=== PATIENT | female | born 1965 | race Caucasian/White ===

== ENCOUNTER → 2017-10-10 | Outpatient (CLI) | payer MEDICARE ==
[2017-10-10 13:51] LABS: INR 1.72
== END ==
LOC: LAB 13:18
PROVIDERS: ATTEND Orthopaedic Surgery Adult Reconstructive Orthopaedic Surgery
DX: Z79.01 Long term (current) use of anticoagulants (principal); Z96.649 Presence of unspecified artificial hip joint
CPT/HCPCS: 36415; 85610

== ENCOUNTER → 2017-10-16 | Outpatient (CLI) | payer MEDICARE, MEDICAID ==
[2017-10-16 14:11] LABS: INR 1.26
== END ==
LOC: LAB 13:51
PROVIDERS: ATTEND Orthopaedic Surgery Adult Reconstructive Orthopaedic Surgery
DX: Z79.01 Long term (current) use of anticoagulants (principal); M17.11 Unilateral primary osteoarthritis, right knee; M17.12 Unilateral primary osteoarthritis, left knee; M17.0 Bilateral primary osteoarthritis of knee; M18.11 Unilateral primary osteoarthritis of first carpometacarpal joint, right hand; M16.12 Unilateral primary osteoarthritis, left hip
CPT/HCPCS: 36415; 85610

== ENCOUNTER → 2017-10-20 | Outpatient (REF) | payer MEDICARE, MEDICAID | LOC: ZZSTITCHES 15:07 | PROVIDERS: ATTEND Physician Assistant | DX: S71.001A Unspecified open wound, right hip, initial encounter (principal); B95.7 Other staphylococcus as the cause of diseases classified elsewhere | CPT/HCPCS: 87070; 87077; 87186 ==

== ENCOUNTER → 2017-10-24 | Outpatient (CLI) | payer MEDICARE, MEDICAID ==
[2017-10-24 13:48] LABS: INR 1.79
== END ==
LOC: LAB 13:23
PROVIDERS: ATTEND Orthopaedic Surgery Adult Reconstructive Orthopaedic Surgery
DX: Z79.01 Long term (current) use of anticoagulants (principal); M17.11 Unilateral primary osteoarthritis, right knee; M17.12 Unilateral primary osteoarthritis, left knee; M17.0 Bilateral primary osteoarthritis of knee; M16.11 Unilateral primary osteoarthritis, right hip; M16.12 Unilateral primary osteoarthritis, left hip
CPT/HCPCS: 36415; 85610

== ENCOUNTER 2018-04-16 13:00 | Outpatient (RCR) | payer MEDICARE, MEDICAID ==
--- NOTE | 2018-04-11 08:29 | PT INITIAL EVALUATION ---
MEDICAL DIAGNOSIS: s/p R SHEILA TREATMENT DIAGNOSIS: Same, altered gait and balance, R hip pain DATE OF ONSET: 09/29/17 SUBJECTIVE: Nika Portillo presents to PT for R SHEILA rehabilitation. I know Nika from her L SHEILA with L LE nerve damage, 2013. She has had SHEILA for hip dysplasia, had R hip pinning in the 4th or 5th grade. Her R femur fractured during R SHEILA due to the pins being fused in the bone. She now drives, can ambulate short distances, has R hip pain. her goals include improved ambulation , reduce pain medicine, walk full shopping trips with a grocery cart, be more steady in community ambulation. Her L shoulder aches with L side lie since being NWB 10 week post- R SHEILA and is improving. Pain location is R posterior and lateral hip/thigh, L-S, L lower leg numbness but hypesthesia and described as ache, tightness. Pain scale is 5/10, worse with ambulation, R side lie and better with medicine, ice. REHAB PROBLEM LIST: Increased Pain Decreased ROM Decreased Strength Decreased Endurance Decreased Balance Decreased ADL's Decreased Gait PREVIOUS MEDICAL HISTORY: L SHEILA 2013, hip dysplasia, nerve ablations without success. OCCUPATION: Disabled, lives alone, tub/shower transfers and two steps into home are independent, per Nika. OBJECTIVE: Posture: Independent stance with heels 6" apart, trunk flexed 20 degrees, steady. ROM: A/PROM R hip flexion 90/100 deg., IR 0/15 deg., ER 15/25 deg., extension - 10/-10 deg., adduction 10/15 deg., IT band pain. R knee and ankle PROM WNL, L ankle AROM DF -5 deg, PF 20 degrees, knee AROM WNL, L hip PROM Strength: L G. minimus/ruchi 3+/5, G. medius 4/5, quad 4/5, ankle DF 5-/5, PF 3+/5, R quad 4/5, ankle DF 3+/5, PF 3/5. Palpation: Painful R incision and IT band, TFL, hypesthesia L lower leg, worse at the foot Special Tests: Positive L Joanna's test. Mobility: Independent. Gait: Nika ambulates without hip extension B, lacks L pelvic WS in L stance cane, mild R foot drop, trunk flexed 25 degrees, ipsilateral trunk lean in stance, L and R, slow cadance with shorter R step length. Balance: Double limb support. ASSESSMENT: Nika Portillo presents with weakness, pain, reduced ROM, altered gait, reduced balance, function, endurance. She did well with HEP instruction. Short Term Goals/Patient's Goals: One month: Nika ambulates short community distances with cane with L LE WS, even stance time, L hip pain 5/10. Two months: Nika shops for 30 minutes with cart with L hip pain 3/10, ambulates with upright, midline trunk, stands 30 minutes cooking. Three months: Nika mops her floors, ambulates long community distances with cane, L hip pain 2-3/10. PLAN: Patient to be seen for Manual Therapy, Strengthening/condition, Ice/Heat , Range of Motion, Stretching, Neuromuscular Re-ed, Electrical Stim, Gait Trg/ Balance Trg, Home Exercise Program 3x/Week for 3 months Thank you for this referral. If you have any questions, comments, or concerns about this report or plan, please contact me at . MTDD
--- NOTE | 2018-05-16 15:32 | PT PLAN OF CARE ---
Physician: Dr. Paul Cox Patient has stopped attending PT Therapist: Arely Henson, PT Medical Diagnosis: s/p R SHEILA Treatment Diagnosis: Same, altered gait and balance, R hip pain Date of Onset: 09/29/17 Date of Initial Evaluation: 04/10/18 Date patient was last seen: 04/16/18 Number of treatments: 3 Number of cancellations/No shows: 4 INTERVENTIONS: Strengthening/condition, Stretching GOALS/PATIENT'S GOAL: All not met: One month: Nika ambulates short community distances with cane with L LE WS, even stance time, L hip pain 5/10. Two months: Nika shops for 30 minutes with cart with L hip pain 3/10, ambulates with upright, midline trunk, stands 30 minutes cooking. Three months: Nika mops her floors, ambulates long community distances with cane, L hip pain 2-3/10. Patient Compliance: Poor Prognosis: Excellent Reasons for discontinuing therapy: S: Nika left town after mid-April for a and has returned to [place], but doesn't return our calls to schedule more PT. A/P: Nika has discharged herself from PT. I'll close her PT case. Thank you. SIMONE
== END 2018-04-16 18:00 | disposition home or self-care (01) ==
LOC: PT 13:00
PROVIDERS: ATTEND Orthopaedic Surgery Adult Reconstructive Orthopaedic Surgery
DX: Z47.1 Aftercare following joint replacement surgery (principal); Z96.643 Presence of artificial hip joint, bilateral; R26.89 Other abnormalities of gait and mobility; M25.551 Pain in right hip
CPT/HCPCS: 97162

== ENCOUNTER → 2018-04-19 | Outpatient (CLI) | payer MEDICARE, MEDICAID | LOC: LAB 14:53 | PROVIDERS: ATTEND Clinical Nurse Specialist Family Health | DX: R53.83 Other fatigue (principal); Z79.899 Other long term (current) drug therapy | CPT/HCPCS: 36415; 82040; 82247; 82310; 82374; 82435; 82565; 82947; 84075; 84132; 84155; 84295; 84443; 84450; 84460; 84520 ==

== ENCOUNTER 2018-05-14 10:06 | Emergency (ER) | payer MEDICARE, MEDICAID ==
[2018-05-14] MEDS ORDERED: ANAPHYLAXIS KIT 1 EA ONE (10:08)
--- NOTE | 2018-05-14 10:12 | ER Report ---
History and Physical Time Seen By MD: 10:12 HPI/ROS 52-year-old female presents to the emergency department stating that she is having an allergic reaction from a spider bite. History is obtained after treatment for a presumed allergic reaction. She states that she has had a small abscess with swelling on her face since yesterday, and also reports a "spider bite" in her ear that also started yesterday. She became short of breath this morning after taking gabapentin. Other than the abscess to her face she denies any rashes, no nausea vomiting or diarrhea, and reports mild wheezing. No fever or chills. She has a history of MRSA. No difficulty swallowing, no fullness in her upper airway, no change in voice.. Allergies: Coded Allergies: butorphanol (Verified Allergy, Intermediate, 05/14/18) Home Meds Active Scripts Mupirocin Marlon 2% Cream (MUPIROCIN 2% CREAM) 15 Gm Cream..g., 0 TP TID for 10 Days, TUBE Prov:PATTI CHARLTON MD 05/14/18 Cephalexin 500 Mg Tab (KEFLEX 500 MG TAB) 500 Mg Tablet, 500 MG PO BID for 10 Days, #20 TAB Prov:PATTI CHARLTON MD 05/14/18 Sulfamethoxazole/Trimet 800-160 Mg Tab (BACTRIM DS TABLET) 1 Each Tablet, 1 TAB PO Q12H for 10 Days, TAB Prov:PATTI CHARLTON MD 05/14/18 Reported Medications Albuterol Sulfate (VENTOLIN HFA) 18 Gm Inh, 2 PUFF INH Q4-6H, INH 05/14/18 Duloxetine HCl (Duloxetine HCl) 60 Mg Capsule.dr, BID 05/14/18 Tapentadol Hcl (NUCYNTA) 75 Mg Tablet, 75 MG PO Q6H 05/14/18 Gabapentin (GABAPENTIN) 300 Mg Capsule, 600 MG PO DIRECTED, CAPSULE 05/14/18 Reviewed Nurses Notes: Yes Old Medical Records Reviewed: Yes Hx Smoking: Yes Smoking Status: Current: Every Day Smoker Exposure to Second Hand Smoke?: Yes Hx Substance Use Disorder: No Hx Alcohol Use: No Constitutional Vital Sign - Last 24 Hours 05/14/18 05/14/18 05/14/18 05/14/18 10:06 10:08 10:09 10:13 Temp 97.5 Pulse ??? 82 Resp 18 B/P (MAP) 204/110 (141) 162/100 (120) 162/100 Pulse Ox 92 05/14/18 05/14/18 05/14/18 10:16 10:20 10:20 Pulse 78 83 Resp 14 Pulse Ox 92 94 O2 Delivery Room Air Physical Exam General Appearance: The patient is alert, has no immediate need for airway protection and no current signs of toxicity. Eyes: Pupils equal and round no injection. Respiratory: Chest is non tender, lungs are clear to auscultation. Cardiac: regular rate and rhythm Gastrointestinal: Abdomen is soft and non tender, no masses, bowel sounds normal. Musculoskeletal: Neck: Neck is supple and non tender. Extremities have full range of motion and are non tender. Skin: no rashes, 1x1cm pustule with surrounding erythema to her right chin area with subsequent edema DIFFERENTIAL DIAGNOSIS: After history and physical exam differential diagnosis was considered for anaphylaxis, allergic reaction, abscess, MRSA Medical Decision Making ED Course/Re-evaluation ED Course 52-year-old female who presents to the emergency department tachypnea take and stating that she is having allergic reaction to a "spider bite." She was initially given Benadryl and Pepcid as well as Solu-Medrol for her presentation of an allergic reaction. Never any wheezing or airway edema. In further evaluation she has what appears to be an infected pressure on her face. No evidence of a dental caries or pain in her teeth. No airway compromise. I&D was attempted of the small pustule, but the fluid appears loculated. Given her history of MRSA, she was placed on Bactrim and Keflex as well as mupirocin cream applied directly to the pustule. I do not think her presentation was a true allergic reaction. Not think she needs additional steroids to take home. She will follow-up with her primary care physician. Procedure AN I&D was attempted using an 18 gauge needle used to attempt to deroof the abscess Decision to Disposition Date: May 14, 2018 Decision to Disposition Time: 13:25 Depart Departure Latest Vital Signs Vital Signs Date Time Temp Pulse Resp B/P (MAP) Pulse Ox O2 Delivery O2 Flow Rate FiO2 05/14/18 10:20 83 14 05/14/18 10:20 94 Room Air 05/14/18 10:13 97.5 162/100 Impression: Primary Impression: Facial abscess Additional Impression: Allergic reaction Condition: Improved Disposition: HOME OR SELF-CARE New Scripts Mupirocin Marlon 2% Cream (MUPIROCIN 2% CREAM) 15 Gm Cream..g. 0 TP TID for 10 Days, TUBE Prov: PATTI CHARLTON MD 05/14/18 Cephalexin 500 Mg Tab (KEFLEX 500 MG TAB) 500 Mg Tablet 500 MG PO BID for 10 Days, #20 TAB Prov: PATTI CHARLTON MD 05/14/18 Sulfamethoxazole/Trimet 800-160 Mg Tab (BACTRIM DS TABLET) 1 Each Tablet 1 TAB PO Q12H for 10 Days, TAB Prov: PATTI CHARLTON MD 05/14/18 Patient Instructions: Abscess (ED) Problem Qualifiers Additional Impression: Allergic reaction Encounter type: initial encounter Qualified Codes: T78.40XA - Allergy, unspecified, initial encounter PATTI CHARLTON MD May 14, 2018 10:12
[2018-05-14 10:13] VITALS: BP 162/100
[2018-05-14] MEDS ORDERED: methylPREDNIS SUCC 125 MG/2ML IVP ONE (10:15)
[2018-05-14] MEDS ORDERED: FAMOTIDINE 20 MG TAB PO ONE (10:15)
[2018-05-14] MEDS ORDERED: diphenhydrAMINE 25 MG CAP PO ONE (10:15)
[2018-05-14] MEDS ORDERED: ALBUTEROL/IPRATROPIUM 3 ML NEB NEB ONE (10:15)
[2018-05-14] MEDS ORDERED: GABA-549 PO (11:02)
[2018-05-14] MEDS ORDERED: TAPE75TA PO (11:02)
[2018-05-14] MEDS ORDERED: ALB18R INH (11:02)
[2018-05-14] MEDS ORDERED: DULO60CA7 (11:02)
--- NOTE | 2018-05-14 11:04 | RADIOLOGY IMAGING REPORT ---
FACILITY: [facility] - [place] PATIENT NAME: Nika Portillo : 1965 MR: [id number] V: [id number] EXAM DATE: ORDERING PHYSICIAN: PATTI CHARLTON TECHNOLOGIST: Location: [facility] - [place] Patient: Nika Portillo : 1965 Visit/Account:[id number] Date of Sevice: 05/14/2018 Exam type: CHEST SINGLE AP History: Spider bite, shortness of breath Comparison: None. Findings: Small nodular density projecting over the left midlung field. No evidence of focal infiltrates, pulm onary edema or pleural effusions. The cardiac silhouette is normal in size. There is mild right hil ar prominence IMPRESSION: 1. A small nodular density projects over the left midlung field. There are no prior studies availab le for comparison and therefore short-term interval follow-up chest or chest CT recommended No evidence of focal infiltrates or overt pulmonary edema. Mild right hilar prominence. This could represent an overlapping vascular shadow although again shor t-term interval follow-up chest or chest CT recommended Report Dictated By: Latosha Isaac MD at 05/14/2018 10:41 AM Report E-Signed By: Latosha Isaac MD at 05/14/2018 10:59 AM WSN:[email or web address]
[2018-05-14] MEDS ORDERED: diphenhydrAMINE 50 MG/ML VIAL IVP ONE (11:10)
[2018-05-14] MEDS ORDERED: FAMOTIDINE(*) 20MG/50ML PREMIX 50 ML IVPB ONE (11:10)
[2018-05-14] MEDS ORDERED: MUPIROCIN 2% OINT 22 GM TUBE TP ONE (13:05)
[2018-05-14] MEDS ORDERED: TRIMETH/SULFA DS 160-800MG TAB PO ONE (13:05)
[2018-05-14] MEDS ORDERED: CEPHALEXIN MONO 500 MG CAP PO ONE (13:05)
[2018-05-14] MEDS ORDERED: CEPH500T7 PO (13:28)
[2018-05-14] MEDS ORDERED: SULF-198 PO (13:28)
[2018-05-14] MEDS ORDERED: MUPI15CR2 TP (13:29)
== END 2018-05-14 13:50 | disposition home or self-care (01) ==
LOC: ER 10:15
DX: T78.40XA Allergy, unspecified, initial encounter (principal); L02.01 Cutaneous abscess of face
CPT/HCPCS: 10060; 71045; 94640; 96365; 96375; 99284; A9270; J1200; J2930; J3490; J7620

== ENCOUNTER 2018-05-16 12:15 | Emergency (ER) | payer MEDICARE, MEDICAID ==
[~2018-05-16 12:15] MED LIST: ALB18R INH; CEPH500T7 PO; DULO60CA7; GABA-549 PO; MUPI15CR2 TP; SULF-198 PO; TAPE75TA PO
[2018-05-16] MEDS ORDERED: DICL100G39 (12:31)
[2018-05-16 12:47] LABS: PLATELET COUNT, AUTOMATED 291 K/uL (150-450)
--- NOTE | 2018-05-16 13:48 | ER Report ---
History and Physical Time Seen By MD: 12:16 Hx. of Stated Complaint: Recheck for facial swelling. Thinks it is getting worse HPI/ROS CHIEF COMPLAINT: Facial abscess HISTORY OF PRESENT ILLNESS: Patient is a 52-year-old female who presents to ED with complaint of a right facial abscess. She states that she was seen in the emergency department 2 days ago for this and was prescribed Keflex and Bactrim. She states that she has been taking his antibiotics but continues to notice some pain. She denies any actual dental pain but no since he does have a bad tooth in the right lower or area. She denies any fever. She has not noted any discharge. Patient denies any, shortness of breath. She states that the swelling has been coming and going at times and has been itchy at times as well. REVIEW OF SYSTEMS: Constitutional: See history of present illness. Eyes: No discharge. ENT: See history of present illness. Cardiovascular: No chest pain, no palpitations. Respiratory: No cough, no shortness of breath. Gastrointestinal: No abdominal pain, no vomiting. Musculoskeletal: No back pain. Skin: See history of present illness. Neurological: No headache. Allergies: Coded Allergies: butorphanol (Verified Allergy, Intermediate, 05/16/18) Home Meds Active Scripts Mupirocin Marlon 2% Cream (MUPIROCIN 2% CREAM) 15 Gm Cream..g., 0 TP TID for 10 Days, TUBE Prov:PATTI CHARLTON MD 05/14/18 Cephalexin 500 Mg Tab (KEFLEX 500 MG TAB) 500 Mg Tablet, 500 MG PO BID for 10 Days, #20 TAB Prov:PATTI CHARLTON MD 05/14/18 Sulfamethoxazole/Trimet 800-160 Mg Tab (BACTRIM DS TABLET) 1 Each Tablet, 1 TAB PO Q12H for 10 Days, TAB Prov:PATTI CHARLTON MD 05/14/18 Reported Medications Diclofenac Sodium 1% Gel (VOLTAREN 1% GEL) 100 Gm Gel..gram., Y for PAIN 05/16/18 Albuterol Sulfate (VENTOLIN HFA) 18 Gm Inh, 2 PUFF INH Q4-6H, INH 05/14/18 Duloxetine HCl (Duloxetine HCl) 60 Mg Capsule.dr, BID 05/14/18 Tapentadol Hcl (NUCYNTA) 75 Mg Tablet, 75 MG PO Q6H 05/14/18 Gabapentin (GABAPENTIN) 300 Mg Capsule, 600 MG PO DIRECTED, CAPSULE 05/14/18 Reviewed Nurses Notes: Yes Old Medical Records Reviewed: Yes Hx Smoking: Yes Smoking Status: Current: Every Day Smoker Exposure to Second Hand Smoke?: Yes Hx Substance Use Disorder: No Hx Alcohol Use: No Constitutional Vital Sign - Last 24 Hours 05/16/18 12:17 Temp 98.4 Pulse 79 Resp 16 B/P (MAP) 156/60 Pulse Ox 93 O2 Delivery Room Air Physical Exam General Appearance: The patient is alert, has no immediate need for airway protection and no signs of toxicity. Patient appears to be in no acute distress. Eyes: Pupils equal and round no pallor or injection. ENT, Mouth: There is a discolored, brown, fractured right lower molar. The tooth is not painful with palpation. Some of the surrounding gum area is slightly tender to palpation. There is no obvious swelling or fluctuance noted. There is some swelling noted in the right lower face. There is bilateral anterior cervical lymphadenopathy appreciated. No pharyngeal erythema or exudate noted. There is no trismus. No meningeal signs noted. Patient's voice appears normal. Respiratory: There are no retractions, lungs are clear to auscultation. Cardiovascular: Regular rate and rhythm. Gastrointestinal: Abdomen is soft and non tender, no masses, bowel sounds normal. Neurological: Cranial nerves II through XII intact. Skin: See ENT exam. Musculoskeletal: Neck is supple non tender. Extremities are nontender, nonswollen and have full range of motion. DIFFERENTIAL DIAGNOSIS: After history and physical exam differential diagnosis was considered for right facial swelling including limited extension, dental abscess, parotitis, allergic reaction. Medical Decision Making Data Points Result Diagram: 05/16/18 1237 05/16/18 1237 Laboratory Hematology Test 05/16/18 12:37 Red Blood Count 5.32 M/uL (4.17-5.56) Mean Corpuscular Volume 79.3 fL (80.0-96.0) Mean Corpuscular Hemoglobin 25.9 pg (26.0-33.0) Mean Corpuscular Hemoglobin Concent 32.7 g/dL (32.0-36.0) Red Cell Distribution Width 17.2 % (11.5-14.5) Mean Platelet Volume 8.7 fL (7.2-11.1) Neutrophils (%) (Auto) 72.9 % (39.4-72.5) Lymphocytes (%) (Auto) 18.8 % (17.6-49.6) Monocytes (%) (Auto) 4.7 % (4.1-12.4) Eosinophils (%) (Auto) 2.5 % (0.4-6.7) Basophils (%) (Auto) 1.1 % (0.3-1.4) Nucleated RBC Relative Count (auto) 0.1 /100WBC Neutrophils # (Auto) 7.4 K/uL (2.0-7.4) Lymphocytes # (Auto) 1.9 K/uL (1.3-3.6) Monocytes # (Auto) 0.5 K/uL (0.3-1.0) Eosinophils # (Auto) 0.2 K/uL (0.0-0.5) Basophils # (Auto) 0.1 K/uL (0.0-0.1) Nucleated RBC Absolute Count (auto) 0.01 K/uL Sodium Level 141 mmol/L (137-145) Potassium Level 3.5 mmol/L (3.5-5.0) Chloride Level 101 mmol/L (98-107) Carbon Dioxide Level 29 mmol/L (22-31) Blood Urea Nitrogen 10 mg/dl (7-18) Creatinine 0.60 mg/dl (0.52-1.04) Glomerular Filtration Rate Calc > 60.0 Random Glucose 119 mg/dl (75-110) Calcium Level 8.8 mg/dl (8.4-10.2) Total Bilirubin 0.5 mg/dl (0.2-1.3) Aspartate Amino Transf (AST/SGOT) 29 U/L (0-35) Alanine Aminotransferase (ALT/SGPT) 25 U/L (0-56) Alkaline Phosphatase 127 U/L (0-126) C-Reactive Protein 2.5 mg/dl (<1.0) Total Protein 7.8 g/dl (6.3-8.2) Albumin 4.4 g/dl (3.5-5.0) Chemistry Test 05/16/18 12:37 White Blood Count 10.1 k/uL (4.5-11.0) Red Blood Count 5.32 M/uL (4.17-5.56) Hemoglobin 13.8 g/dL (12.0-16.0) Hematocrit 42.2 % (34.0-47.0) Mean Corpuscular Volume 79.3 fL (80.0-96.0) Mean Corpuscular Hemoglobin 25.9 pg (26.0-33.0) Mean Corpuscular Hemoglobin Concent 32.7 g/dL (32.0-36.0) Red Cell Distribution Width 17.2 % (11.5-14.5) Platelet Count 291 K/uL (150-450) Mean Platelet Volume 8.7 fL (7.2-11.1) Neutrophils (%) (Auto) 72.9 % (39.4-72.5) Lymphocytes (%) (Auto) 18.8 % (17.6-49.6) Monocytes (%) (Auto) 4.7 % (4.1-12.4) Eosinophils (%) (Auto) 2.5 % (0.4-6.7) Basophils (%) (Auto) 1.1 % (0.3-1.4) Nucleated RBC Relative Count (auto) 0.1 /100WBC Neutrophils # (Auto) 7.4 K/uL (2.0-7.4) Lymphocytes # (Auto) 1.9 K/uL (1.3-3.6) Monocytes # (Auto) 0.5 K/uL (0.3-1.0) Eosinophils # (Auto) 0.2 K/uL (0.0-0.5) Basophils # (Auto) 0.1 K/uL (0.0-0.1) Nucleated RBC Absolute Count (auto) 0.01 K/uL Glomerular Filtration Rate Calc > 60.0 Calcium Level 8.8 mg/dl (8.4-10.2) Total Bilirubin 0.5 mg/dl (0.2-1.3) Aspartate Amino Transf (AST/SGOT) 29 U/L (0-35) Alanine Aminotransferase (ALT/SGPT) 25 U/L (0-56) Alkaline Phosphatase 127 U/L (0-126) C-Reactive Protein 2.5 mg/dl (<1.0) Total Protein 7.8 g/dl (6.3-8.2) Albumin 4.4 g/dl (3.5-5.0) ED Course/Re-evaluation ED Course Will obtain labs and CT of the soft tissues of the neck. 05/16/2018 1:57:39 pm - discussed all labs and imaging with patient. Patient does not have any leukocytosis and only a slightly elevated CRP. Radiology read the CT indicates that there is no abscess formation. Soft tissue swelling appears to be primarily around the teeth into the cheek. She does have that poor looking tooth and would recommend following up with dentist regarding this. Will switch her antibiotics to clindamycin at this time. Decision to Disposition Date: May 16, 2018 Decision to Disposition Time: 13:58 Depart Departure Latest Vital Signs Vital Signs Date Time Temp Pulse Resp B/P (MAP) Pulse Ox O2 Delivery O2 Flow Rate FiO2 05/16/18 12:17 98.4 79 16 156/60 93 Room Air Impression: Primary Impression: Suspected soft tissue infection Condition: Improved Disposition: HOME OR SELF-CARE New Scripts Clindamycin Hcl (CLINDAMYCIN HCL) 300 Mg Capsule 300 MG PO Q6H, #40 CAPSULE Prov: TYLOR GAYTAN PA-C 05/16/18 Patient Instructions: Dental Caries (ED) Additional Instructions: Monitor for signs and symptoms of worsening infection including worsening swelling, redness, discharge, fever. Follow-up with dentist and primary care provider in 2-3 days. If having any worsening or concerning symptoms may return to the emergency department. TYLOR GAYTAN PA-C May 16, 2018 13:48
--- NOTE | 2018-05-16 13:49 | RADIOLOGY IMAGING REPORT ---
FACILITY: [facility] - [place] PATIENT NAME: Nika Portillo : 1965 MR: [id number] V: [id number] EXAM DATE: ORDERING PHYSICIAN: TYLOR GAYTAN TECHNOLOGIST: Location: [facility] - [place] Patient: Nika Portillo : 1965 Visit/Account:[id number] Date of Sevice: 05/16/2018 EXAMINATION: CT neck without IV contrast HISTORY: Right submandibular swelling and right neck pain. COMPARISON: None. TECHNIQUE: Spiral scan was obtained from the hard palate through the upper chest without intravenou s contrast. Sagittal and coronal reformatted images are also submitted. One of the following dose optimization techniques was utilized in the performance of this exam: Autom ated exposure control; adjustment of the mA and/or kV according to the patient's size; or use of an i terative reconstruction technique. Specific details can be referenced in the facility's radiology C T exam operational policy. FINDINGS: Masses/lesions: There is swelling and haziness in the subcutaneous soft tissues centered lateral to the right mandibular body. Superiorly the swelling extends lateral to the right maxillary alveolar ri dge and inferiorly the swelling extends into the submandibular spaces, and overlying subcutaneous sof t tissues, right more than left. No obvious abscess is identified on this noncontrast examination. Airway: Normal. Vessels: Mild calcified plaque at the left carotid bulb. Musculoskeletal / Body wall: Small disc bulges in the cervical spine at multiple levels which slightl y indent the ventral thecal sac. Lymph node assessment: Negative. Visualized orbits / brain / paranasal sinuses: Negative. Upper chest: Negative. IMPRESSION: Soft tissue swelling in the subcutaneous soft tissues of the right face centered lateral to the right mandibular body with extension into the submandibular spaces and overlying subcutaneous soft tissues , right more than left. No obvious abscess on this noncontrast examination. Report Dictated By: Eduardo Garcia MD at 05/16/2018 1:28 PM Report E-Signed By: Eduardo Garcia MD at 05/16/2018 1:45 PM WSN:[id number]
[2018-05-16] MEDS ORDERED: CLIN300C99 PO (13:59)
[2018-05-16 14:00] VITALS: BP 145/90
== END 2018-05-16 14:05 | disposition home or self-care (01) ==
LOC: ER 12:22
DX: L02.01 Cutaneous abscess of face (principal)
CPT/HCPCS: 70490; 82040; 82247; 82310; 82374; 82435; 82565; 82947; 84075; 84132; 84155; 84295; 84450; 84460; 84520; 85025; 86140; 99284

== ENCOUNTER → 2018-07-24 | Outpatient (CLI) | payer MEDICARE ==
[~2018-07-24] MED LIST changes: +CLIN300C99 PO; +DICL100G39
--- NOTE | 2018-07-24 11:45 | RADIOLOGY IMAGING REPORT ---
FACILITY: [facility] PATIENT NAME: Nika Portillo : 1965 MR: [id number] V: [id number] EXAM DATE: ORDERING PHYSICIAN: PILAR ACOSTA TECHNOLOGIST: Location: [facility] Patient: Nika Portillo : 1965 Visit/Account:[id number] Date of Sevice: 07/24/2018 CHEST PA AND LAT Indication: Bronchitis chest pain and cough Comparison: Chest x-ray 05/14/2018 Findings: Lungs: There is a calcified granuloma in the left mid lung, unchanged. The lungs are otherwise clear . Mediastinum/pulmonary vasculature: Heart size and pulmonary vasculature are normal. Bones/soft tissues: Normal. IMPRESSION: 1. No acute airspace opacity or pneumonia. 2. Benign calcified granuloma left midlung. Report Dictated By: Craig Alvarez at 07/24/2018 11:40 AM Report E-Signed By: Craig Alvarez at 07/24/2018 11:41 AM WSN:[email or web address]
== END ==
LOC: RAD 11:04
PROVIDERS: ATTEND Family Medicine
DX: J84.10 Pulmonary fibrosis, unspecified (principal)
CPT/HCPCS: 71046

== ENCOUNTER → 2018-12-25 | Outpatient (CLI) | payer MEDICARE ==
--- NOTE | 2018-12-25 23:30 | RADIOLOGY IMAGING REPORT ---
FACILITY: [facility] - [place] PATIENT NAME: Nika Portillo : 1965 MR: [id number] V: [id number] EXAM DATE: ORDERING PHYSICIAN: CORNEL DAMICO TECHNOLOGIST: Location: [facility] [place] Patient: Nika Portillo : 1965 Visit/Account:[id number] Date of Sevice: 12/25/2018 CERVICAL SPINE 2 OR 3 VIEW HISTORY: Cervicalgia. Pain radiates down both arms. COMPARISON: 02/22/2016. CT soft tissue neck 05/16/2018. TECHNIQUE: AP, lateral, and odontoid views of the cervical spine. FINDINGS: On the lateral view, C1 through the bottom of C7 are visible. T1 is visualized behind shoul hermelinda structures. Vertebral body heights are maintained. There is 2 mm anterolisthesis of C6 on C7, unchanged. Preverte bral soft tissues are within normal limits. Lateral masses of C1 are well seated on C2. There is mild degenerative disc disease, greatest at C5-6 posteriorly. Visible lungs are clear. IMPRESSION: 1. Stable degenerative changes of the cervical spine, without acute osseous abnormality. Report Dictated By: Perlita Gil at 12/25/2018 11:25 PM Report E-Signed By: Perlita Gil at 12/25/2018 11:26 PM WSN:[id number]
== END ==
LOC: RAD 20:04
PROVIDERS: ATTEND Clinical Nurse Specialist Family Health
DX: M47.892 Other spondylosis, cervical region (principal)
CPT/HCPCS: 72040

== ENCOUNTER → 2019-02-08 | Outpatient (CLI) | payer MEDICARE | LOC: LAB 09:41 | PROVIDERS: ATTEND Clinical Nurse Specialist Family Health | DX: M62.830 Muscle spasm of back (principal); R53.83 Other fatigue; Z79.899 Other long term (current) drug therapy | CPT/HCPCS: 36415; 82040; 82247; 82306; 82310; 82374; 82435; 82565; 82607; 82947; 83735; 84075; 84132; 84155; 84295; 84450; 84460; 84520; 85027 ==